=== PATIENT | female | born 1945 | race Caucasian/White ===

== ENCOUNTER 2018-04-26 20:06 | Emergency (ER) | payer MEDICARE ==
[~2018-04-26] VITALS: Ht 175.3 cm; Wt 102.0 kg
[~2018-04-26 20:06] MED LIST: PANT-47 PO; SIME80TA16 PO
[2018-04-26 20:38] LABS: BASOPHILS # (AUTO) 0.1 X10'3 (0-0.2); BASOPHILS % (AUTO) 0.6 % (0-1); EOSINOPHILS # (AUTO) 0.2 X10'3 (0-0.9); EOSINOPHILS % (AUTO) 1.9 % (0-6); HEMATOCRIT 42.7 % (35.0-45.0); HEMOGLOBIN 14.4 g/dl (12.0-16.0); LYMPHOCYTES # (AUTO) 2.9 X10'3 (1.1-4.8); LYMPHOCYTES % (AUTO) 28.3 % (21-51); MEAN CORPUSCULAR HEMOGLOBIN 30.4 PG (27.0-31.0); MEAN CORPUSCULAR HGB CONC 33.9 % (33.0-36.5); MEAN CORPUSCULAR VOLUME 89.7 FL (78-98); MEAN PLATELET VOLUME 7.5 FL (7.4-10.4); MONOCYTES % (AUTO) 9.4 % (2-12); NEUTROPHILS # (AUTO) 6.1 X10'3 (1.8-7.7); NEUTROPHILS % (AUTO) 59.8 % (42-75); PLATELET COUNT 302 X10'3 (140-440); RED BLOOD COUNT 4.76 X10'6 (4.20-5.60); RED CELL DISTRIBUTION WIDTH 13.4 % (11.5-14.5); WHITE BLOOD COUNT 10.3 X10'3 (4.5-11.0)
[2018-04-26] MEDS ORDERED: famotidine 20mg tablet PO ONE (20:50)
[2018-04-26] MEDS ORDERED: LIDOcaine Viscous 15ml cup PO ONE (20:50)
[2018-04-26] MEDS ORDERED: LORazepam 2 mg/ml vial IV ONE (20:50)
[2018-04-26] MEDS ORDERED: acetaminophen 325mg tablet PO ONE (20:50)
[2018-04-26] MEDS ORDERED: ondansetron/PF 4mg/2ml inj IV ONE (20:50)
[2018-04-26] MEDS ORDERED: mag hydrox/Alum hydrox/simeth 30ml oral suspension PO ONE (20:50)
[2018-04-26 20:53] LABS: ALANINE AMINOTRANSFERASE 31 U/L (12-78); ALBUMIN 4.1 G/DL (3.4-5.0); ALBUMIN/GLOBULIN RATIO 1.2 (1.1-1.5); ALKALINE PHOSPHATASE 99 IU/L (46-116); ANION GAP 12 (8-16); ASPARTATE AMINO TRANSFERASE 23 U/L (10-37); BILIRUBIN,TOTAL 0.4 MG/DL (0.1-1.0); BLOOD UREA NITROGEN 14 MG/DL (7-18); BUN/CREATININE RATIO 11.7 (6.6-38.0); CHLORIDE 103 MMOL/L (99-107); GLUCOSE 89 MG/DL (70-104); LIPASE 240 U/L (73-393); POTASSIUM 3.7 MMOL/L (3.5-5.1); SODIUM 139 MMOL/L (135-145); TOTAL CARBON DIOXIDE 24.3 MMOL/L (24-32); TOTAL PROTEIN 7.6 G/DL (6.4-8.2); eGFR 44 ML/MIN
[2018-04-26 21:17] VITALS: BP 183/24
[2018-04-26 21:39] LABS: CLARITY,URINE CLOUDY (Clear); COLOR,URINE YELLOW (Yellow); GLUCOSE, URINE NEGATIVE (Neg); KETONES,URINE NEGATIVE (Neg); LEUKOCYTE ESTERASE ,URINE LARGE (Neg); NITRITES, URINE NEGATIVE (Neg); OCCULT BLOOD,URINE TRACE-INTACT (Neg); PH,URINE 6.5 (4.8-8.0); PROTEIN,URINE NEGATIVE (Neg); UROBILINOGEN,URINE 0.2 E.U/dL (0.2-1.0)
[2018-04-26 21:46] LABS: UA COLLECTION TYPE CLN CATCH MIDSTREAM
[2018-04-26 21:48] LABS: WBC,URINE 30-50 /HPF (0-4)
[2018-04-26 21:49] LABS: BACTERIA,URINE 1+ /HPF (Neg); MUCUS STRANDS FEW /LPF (Neg); RBC,URINE 0-2 /HPF (0-2); SQUAMOUS EPITHELIAL CELL,UR FEW /LPF (FEW); WBC CLUMPS,URINE FEW /HPF (NEGATIVE)
[2018-04-26 22:03] LABS: TROPONIN I < 0.04 NG/ML (0.0-0.05)
[2018-04-26 22:41] LABS: D-DIMER 0.47 MG/L FEU (0-0.50)
[2018-04-26] MEDS ORDERED: LORA0.5T PO (23:00)
[2018-04-26] MEDS ORDERED: LORazepam 1 MG tablet PO ONE (23:00)
[2018-04-27] MEDS ORDERED: CIPR-259 PO (03:19)
== END 2018-04-26 23:13 | disposition home or self-care (01) ==
LOC: ER 20:06
DX: F41.9 Anxiety disorder, unspecified (principal); R07.89 Other chest pain; N39.0 Urinary tract infection, site not specified; R06.02 Shortness of breath; F45.8 Other somatoform disorders; E11.9 Type 2 diabetes mellitus without complications; I10 Essential (primary) hypertension; F32.9 Major depressive disorder, single episode, unspecified; E78.00 Pure hypercholesterolemia, unspecified; Z87.891 Personal history of nicotine dependence
CPT/HCPCS: 36415; 80053; 81001; 83605; 83690; 84484; 85025; 85379; 85610; 87088; 93005; 96374; 96375; 99285; J2060; J2405

== ENCOUNTER 2020-11-17 11:50 | Emergency (ER) | payer OTHER, MEDICARE ==
[~2020-11-17] VITALS: Ht 177.8 cm; Wt 100.0 kg
[2020-11-17 14:47] LABS: BASOPHILS % (AUTO) 0.3 % (0-1); EOSINOPHILS # (AUTO) 0.1 X10'3 (0-0.9); EOSINOPHILS % (AUTO) 1.1 % (0-6); HEMATOCRIT 37.8 % (35.0-45.0); HEMOGLOBIN 12.4 g/dl (12.0-16.0); LYMPHOCYTES # (AUTO) 2.2 X10'3 (1.1-4.8); MEAN CORPUSCULAR HEMOGLOBIN 30.7 PG (27.0-31.0); MEAN CORPUSCULAR HGB CONC 32.7 g/dL (33.0-36.5); MEAN CORPUSCULAR VOLUME 93.8 FL (78-98); MEAN PLATELET VOLUME 7.3 FL (7.4-10.4); MONOCYTES # (AUTO) 0.9 X10'3 (0-0.9); MONOCYTES % (AUTO) 7.9 % (2-12); NEUTROPHILS # (AUTO) 8.3 X10'3 (1.8-7.7); NEUTROPHILS % (AUTO) 71.7 % (42-75); PLATELET COUNT 257 X10'3 (140-440); RED BLOOD COUNT 4.03 X10'6 (4.20-5.60); RED CELL DISTRIBUTION WIDTH 13.1 % (11.5-14.5); WHITE BLOOD COUNT 11.6 X10'3 (4.5-11.0)
[2020-11-17 14:59] LABS: PARTIAL THROMBOPLASTIN TIME 25 SECONDS (22-32)
[2020-11-17 15:02] LABS: ALANINE AMINOTRANSFERASE 23 U/L (12-78); ALBUMIN 3.7 G/DL (3.4-5.0); ALBUMIN/GLOBULIN RATIO 1.3 (1.1-1.5); ALKALINE PHOSPHATASE 70 IU/L (46-116); ANION GAP 8 (8-16); ASPARTATE AMINO TRANSFERASE 22 U/L (10-37); BILIRUBIN,TOTAL 0.3 MG/DL (0.1-1.0); BLOOD UREA NITROGEN 20 MG/DL (7-18); BUN/CREATININE RATIO 18.7 (6.6-38.0); CALCIUM 9.1 MG/DL (8.5-10.1); CHLORIDE 106 MMOL/L (99-107); CREATININE 1.07 MG/DL (0.40-0.90); GLUCOSE 64 MG/DL (70-104); POTASSIUM 4.5 MMOL/L (3.5-5.1); SODIUM 141 MMOL/L (135-145); TOTAL CARBON DIOXIDE 27.5 MMOL/L (24-32); TOTAL PROTEIN 6.6 G/DL (6.4-8.2); eGFR 50 ML/MIN
[2020-11-17] MEDS ORDERED: iohexol 300mg/ml 100ml inj. ONE (15:08)
[2020-11-17 15:10] LABS: CREATINE KINASE 184 U/L (26-192); LIPASE 212 U/L (73-393); TROPONIN I < 0.04 NG/ML (0.0-0.05)
[2020-11-17] MEDS ORDERED: normal saline 1000ML IV soln IVB ONE (15:35)
[2020-11-17] MEDS ORDERED: MESSAGE TO NURSING PO NR (16:00)
[2020-11-17 16:40] LABS: CLARITY,URINE SLIGHTLY CLOUDY (Clear); COLOR,URINE STRAW (Yellow); GLUCOSE, URINE NEGATIVE (Neg); KETONES,URINE NEGATIVE (Neg); LEUKOCYTE ESTERASE ,URINE SMALL (Neg); NITRITES, URINE NEGATIVE (Neg); OCCULT BLOOD,URINE NEGATIVE (Neg); PH,URINE 6.5 (4.8-8.0); PROTEIN,URINE NEGATIVE (Neg); UROBILINOGEN,URINE 0.2 E.U/dL (0.2-1.0)
[2020-11-17 16:47] LABS: UA COLLECTION TYPE CLN CATCH MIDSTREAM
[2020-11-17 16:48] LABS: SQUAMOUS EPITHELIAL CELL,UR MANY /LPF (FEW); TRANSITIONAL EPI CELLS,URINE MODERATE /HPF
[2020-11-17 16:49] LABS: MUCUS STRANDS MODERATE /LPF (Neg)
[2020-11-17 16:51] LABS: RBC,URINE 0-2 /HPF (0-2)
[2020-11-17 16:52] LABS: BACTERIA,URINE NONE SEEN /HPF (Neg)
[2020-11-17 18:40] VITALS: BP 173/90
== END 2020-11-17 18:42 | disposition home or self-care (01) ==
LOC: ER 11:51
DX: S00.83XA Contusion of other part of head, initial encounter (principal); N83.201 Unspecified ovarian cyst, right side; I10 Essential (primary) hypertension; F32.9 Major depressive disorder, single episode, unspecified; R07.89 Other chest pain; E78.00 Pure hypercholesterolemia, unspecified; E11.9 Type 2 diabetes mellitus without complications; Z79.899 Other long term (current) drug therapy; V87.7XXA Person injured in collision between other specified motor vehicles (traffic), initial encounter; Y93.89 Activity, other specified; Y92.89 Other specified places as the place of occurrence of the external cause; Y99.8 Other external cause status
CPT/HCPCS: 36415; 70450; 71260; 74177; 76856; 80053; 81001; 82550; 82948; 83690; 83874; 84484; 85025; 85610; 85730; 93005; 93976; 96360; 99285; J7030; Q9967

== ENCOUNTER 2024-09-18 19:37 | Emergency (ER) | payer MEDICARE ==
[~2024-09-18] VITALS: Ht 177.8 cm; Wt 96.3 kg
[2024-09-18 20:19] LABS: BASOPHILS % (AUTO) 0.2 % (0-1); EOSINOPHILS % (AUTO) 0.1 % (0-6); HEMATOCRIT 40.3 % (35.0-45.0); HEMOGLOBIN 13.6 g/dl (12.0-16.0); LYMPHOCYTES # (AUTO) 1.2 X10'3 (1.1-4.8); LYMPHOCYTES % (AUTO) 9.1 % (21-51); MEAN CORPUSCULAR HEMOGLOBIN 31.4 PG (27.0-31.0); MEAN CORPUSCULAR HGB CONC 33.8 g/dL (33.0-36.5); MEAN CORPUSCULAR VOLUME 92.9 FL (78-98); MEAN PLATELET VOLUME 7.3 FL (7.4-10.4); MONOCYTES # (AUTO) 0.4 X10'3 (0-0.9); MONOCYTES % (AUTO) 3.4 % (2-12); NEUTROPHILS # (AUTO) 11.5 X10'3 (1.8-7.7); NEUTROPHILS % (AUTO) 87.2 % (42-75); PLATELET COUNT 333 X10'3 (140-440); RED BLOOD COUNT 4.34 X10'6 (4.20-5.60); RED CELL DISTRIBUTION WIDTH 14.3 % (11.5-14.5); WHITE BLOOD COUNT 13.2 X10'3 (4.5-11.0)
[2024-09-18 20:24] LABS: ALANINE AMINOTRANSFERASE 16 U/L (12-78); ALBUMIN 3.9 G/DL (3.4-5.0); ALKALINE PHOSPHATASE 85 IU/L (46-116); ANION GAP 13 (8-16); ASPARTATE AMINO TRANSFERASE 30 U/L (10-37); BILIRUBIN,DIRECT 0.1 MG/DL (0-0.3); BILIRUBIN,TOTAL 0.5 MG/DL (0.1-1.0); BLOOD UREA NITROGEN 15 MG/DL (7-18); BUN/CREATININE RATIO 13.3 (10.0-20.0); CALCIUM 9.2 MG/DL (8.5-10.1); CHLORIDE 100 MMOL/L (99-107); CREATININE 1.13 MG/DL (0.40-0.90); GLUCOSE 73 MG/DL (70-104); POTASSIUM 3.6 MMOL/L (3.5-5.1); SODIUM 136 MMOL/L (135-145); TOTAL CARBON DIOXIDE 22.9 MMOL/L (24-32); eCRCL 42 ML/MIN; eGFR 46 ML/MIN
[2024-09-18] MEDS: acetaminophen 325mg tablet PO ONE (20:49)
[2024-09-18] MEDS ORDERED: CEPH-585 PO (21:36)
[2024-09-18 21:43] VITALS: BP 147/87; PULSE 87; RESP 16; TEMP 96.9; O2SAT 100
== END 2024-09-18 22:50 | disposition home or self-care (01) ==
LOC: ER 19:38
DX: J01.90 Acute sinusitis, unspecified (principal); I10 Essential (primary) hypertension; I48.92 Unspecified atrial flutter; E11.9 Type 2 diabetes mellitus without complications; Z79.2 Long term (current) use of antibiotics; Z79.899 Other long term (current) drug therapy; E78.00 Pure hypercholesterolemia, unspecified
CPT/HCPCS: 36415; 70450; 80048; 80076; 85025; 93005; 99284; A6258